=== PATIENT | male | born 1950 | race Caucasian/White ===

== ENCOUNTER 2018-06-29 18:25 | Emergency (ER) | payer MEDICARE, MEDICAID ==
[~2018-06-29] VITALS: Ht 185.4 cm; Wt 88.5 kg
[2018-06-29] MEDS ORDERED: cefTRIAXone SOD 1,000 MG VL IM ONE (23:00)
[2018-06-29] MEDS ORDERED: methylPREDNISolone SOD SUCC 125 MG/2 ML VL IM ONE (23:00)
[2018-06-29 23:05] VITALS: BP 137/80
== END 2018-06-29 23:52 | disposition home or self-care (01) ==
LOC: ER 18:33
DX: H66.93 Otitis media, unspecified, bilateral (principal); H61.23 Impacted cerumen, bilateral
CPT/HCPCS: 93005; 96372; 99283; J0696; J2930